=== PATIENT | female | born 1995 | race Caucasian/White ===

== ENCOUNTER 2019-07-12 10:57 | Inpatient (IN) ==
[2019-07-12] MEDS ORDERED: OXYTOCIN 30 UNITS/500 ML BAG IV PRN ×3 (11:52→22:46)
[2019-07-12 12:18] LABS: Hematocrit (blood only) 40.4 % (37-47); Hemoglobin 13.7 g/dL (12.0-16.0); Mean Corpuscular Hemoglobin 30.8 pg (25-34); Mean Corpuscular Volume 90.8 fL (80-100); Mean Platelet Volume 10.1 fL (7.4-10.4); Platelet Count 267 K/uL (130-400); RDW Coefficient of Variation 13.6 % (11.5-14.5); RDW Standard Deviation 44.4 fL (36.4-46.3); Red Blood Count 4.45 M/uL (4.2-5.4); White Blood Count 12.52 K/uL (4.8-10.8)
[2019-07-12 12:26] LABS: Mean Corpuscular Hgb Conc 33.9 g/dL (32-36)
[2019-07-12] MEDS ORDERED: BUPIVACAINE 0.25% 30 ML VIAL ONE (12:32)
[2019-07-12] MEDS ORDERED: fentaNYL citrate 100 MCG/2 ML VIAL ONE (12:32)
[2019-07-12] MEDS ORDERED: ePHEDrine sulfate 50 MG/ML AMP ONE (12:32)
[2019-07-12] MEDS ORDERED: fentaNYL 2MCG/ML ROPIV 1.25MG/ML 100 ML BAG EPI ONE (12:33)
[2019-07-12] MEDS: LACTATED RINGER'S 1,000 ML IV PRN ×2 (12:35→13:39)
[2019-07-12] MEDS ORDERED: NALOXONE HCL 0.4 MG/1 ML VIAL/CARP IV PRN (12:53)
[2019-07-12] MEDS ORDERED: NALOXONE HCL 1 MG in SODIUM CHLORIDE 0.9% 1000ML 1,000 ML IV PRN (12:53)
[2019-07-12] MEDS ORDERED: ePHEDrine sulfate 50 MG/ML AMP IV PRN (12:53)
[2019-07-12] MEDS ORDERED: DiphenhydrAMINE HCL 50 MG/ML VIAL IV PRN (12:53)
[2019-07-12] MEDS ORDERED: fentaNYL 2MCG/ML ROPIV 1.25MG/ML 100 ML BAG EPI PRN (12:53)
[2019-07-12] MEDS ORDERED: NALBUPHINE HCL INJ 10 MG/ML AMP IV PRN (12:53)
--- NOTE | 2019-07-12 12:54 | Anesthesiology Consultation ---
Date of Service July 12, 2019 Assessment & Plan (1) Encounter for pre-operative examination: Chart Review Chart Review: Patient NOT seen in Pre Admission Testing and Acceptable Risk for Labor Epidural Consults Requested none History Height/Weight Height: 5 ft 3 in Weight: 72.121 kg Allergies Allergy/AdvReac Type Severity Reaction Status Date / Time epinephrine AdvReac Mild Heart Verified 07/06/19 09:45 racing Medications Home Medications Medication Instructions Recorded Confirmed Last Taken PNV cmb#95-ferrous fumarate-FA 1 tab PO DAILY 07/12/19 07/12/19 07/11/19 17:00 [] Active Medications Generic Name Dose Route Start Last Admin Trade Name Freq PRN Reason Stop Dose Admin Lactated Ringer's 1,000 mls @ 125 mls/hr 07/12/19 11:52 07/12/19 12:35 Lr IV 07/14/19 11:51 999 mls/hr .Q8H PRN Administration L&D Protocol Protocol Past Medical History Medical History Infection of urinary tract in (Resolved) Exercise / Class Metabolic Activity II 4-5 Yardwork/Stairs/Walk up hill Past Family History Family History Father Diabetes Hypertension Past Surgical History Surgical History History of oral surgery Past Anesthesia History No Hx of Anesthesia Complications and No Family Hx of Anesthesia Complications History of PONV No Hx of PONV and No Hx of Motion Sickness Social History Smoking Status: Never smoker Do You Dip or Chew Tobacco: No Hx Alcohol Use: No Hx Substance Use: No Physical Exam Vital Signs Last Vital Signs Pulse 91 H 07/12/19 12:50 Resp 20 07/12/19 11:06 BP 136/98 07/12/19 11:14 Pulse Ox 100 07/12/19 12:50 Testing Laboratory Results 07/12/19 12:07
--- NOTE | 2019-07-12 13:49 | History & Physical Report ---
Date of Service July 12, 2019 Assessment & Plan (1) Supervision of normal first : 23yo at 40.0 weeks GA. SROM/Labor 1. Fetus: Cat 1 2. Labor; SROM. Will augment PRN 3. Vitals: WNL 4. GBS neg 5. RH neg - Rh eval post . S/p Rhogam at 28 weeks (2) Need for rhogam due to Rh negative mother: History of Present Illness Primary Care Provider: Mela Lovell, 23yo at 40.0 weeks GA. Presents with SROM and early labor. Patient reports SROM at 10am today. Denies VB. Good FM. has been uncomplicated to date. OB Labs: Blood Type A Negative 01/25/19 Antibody Screen NEGATIVE 04/19/19 Hemoglobin 11.6 g/dL (12.0-16.0) L 04/19/19 Hematocrit 33.9 % (37-47) L 04/19/19 Mean Corpuscular Volume 90.2 fL (80-100) 01/25/19 Platelet Count 295 K/uL (130-400) 01/25/19 Rubella IgG Antibody Immune (Immune) 01/25/19 Rapid Plasma Reagin Nonreactive (Nonreactive) 01/25/19 Hepatitis B Surface Antigen Neg (Neg) 01/25/19 HIV (1&2) Ab and P24 Ag, 4th Gener Neg (Neg) 01/25/19 Glucose 1 Hour 50 gm Load 117 mg/dl (70-130) 04/19/19 Maternal Serum Alpha Fetoprotein 26.2 NG/ML 01/25/19 OB Optional Labs: Alpha Fetoprotein Triple Screen SEE NOTE 01/25/19 Labs Reviewed: neg panorama neg cf and sma carrier. GBS negative Allergies Allergy/AdvReac Type Severity Reaction Status Date / Time epinephrine AdvReac Mild Heart Verified 07/06/19 09:45 racing Home Medications Home Medications Medication Instructions Recorded Confirmed Type PNV cmb#95-ferrous fumarate-FA 1 tab PO DAILY 07/12/19 07/12/19 History [] Patient History Medical History Infection of urinary tract in (Resolved) Surgical History History of oral surgery Family History Father Diabetes Hypertension Social History Preferred Language: E[place] Communication Ability: Effective Beliefs That Will Affect Care: None marital status: Current Living Situation: Spouse Other Information That Helps Us Care for You: No Feels Safe at Home: Yes Safety Concerns: Feels Safe At This Time Smoking Status: Never smoker Do You Dip or Chew Tobacco: No ; Hx Alcohol Use: No Hx Substance Use: No Review of Systems All systems reviewed & are unremarkable except as noted in HPI & below Physical Exam Constitutional: WD/WN, vitals as above Gastrointestinal (Abdomen): Percussion/Palpation: abdomen soft; abdomen nontender, no guarding and abdomen not rigid Psychiatric: A+Ox3, euthymic affect Genitourinary: Manual OB Exam: + cervical dilation (2.5), + cervical effacement 90%, + station -2 and + amniotic fluid clear OB Exam Monitor Tracing: + external FHT monitor used, + external uterine monitor used, + category I and + normal FHT variability; no early decelerations present, no late decelerations present and no variable decelerations Results & Data Vital Signs (Past 12 Hours) Vital Signs Temp Pulse Resp BP Pulse Ox 07/12/19 13:40 93 H 99 07/12/19 13:35 92 H 98 07/12/19 13:33 94 H 121/80 07/12/19 13:30 91 H 119/80 99 07/12/19 13:27 95 H 122/80 07/12/19 13:25 94 H 97 07/12/19 13:24 93 H 116/79 07/12/19 13:21 87 123/80 07/12/19 13:20 89 100 07/12/19 13:18 90 124/80 07/12/19 13:15 86 124/75 100 07/12/19 13:12 89 120/79 07/12/19 13:10 86 100 07/12/19 13:09 97 H 127/90 07/12/19 13:06 93 H 120/83 07/12/19 13:05 90 100 07/12/19 13:00 88 100 07/12/19 12:55 86 100 07/12/19 12:50 91 H 100 07/12/19 12:44 36.5 C 07/12/19 11:14 93 H 136/98 07/12/19 11:06 20 07/12/19 11:04 85 144/92 H
--- NOTE | 2019-07-12 17:11 | Labor Progress Brief Note ---
Date of Service July 12, 2019 Subjective Reason For Note: Routine Evaluation Assessment & Plan (1) Supervision of normal first : 23yo at 40.0 weeks GA. SROM/Labor 1. Fetus: Cat 1 2. Labor: Unchanged. SROM. Will start oxytocin. 3. Vitals: WNL 4. GBS neg 5. RH neg - Rh eval post . S/p Rhogam at 28 weeks (2) Need for rhogam due to Rh negative mother: Physical Exam Constitutional: WD/WN, vitals as above Gastrointestinal (Abdomen): Percussion/Palpation: abdomen soft; abdomen nontender, no guarding and abdomen not rigid Psychiatric: A+Ox3, euthymic affect Genitourinary: Manual OB Exam: + cervical dilation (2.5), + cervical effacement 90%, + station -2 and + amniotic fluid clear OB Exam Monitor Tracing: + external FHT monitor used, + external uterine monitor used, + category I and + normal FHT variability; no early decelerations present, no late decelerations present and no variable decelerations Results & Data Vital Signs (Past 12 Hours) Vital Signs Temp Pulse Resp BP Pulse Ox 07/12/19 17:06 88 119/79 07/12/19 17:05 86 100 07/12/19 17:00 92 H 100 07/12/19 16:55 94 H 100 07/12/19 16:53 92 H 117/80 07/12/19 16:51 98 H 92 07/12/19 16:50 93 H 100 07/12/19 16:45 91 H 100 07/12/19 16:40 90 100 07/12/19 16:36 90 103/61 07/12/19 16:35 88 99 07/12/19 16:30 85 99 07/12/19 16:25 85 99 07/12/19 16:22 86 107/68 07/12/19 16:20 90 99 07/12/19 16:15 89 98 07/12/19 16:10 90 98 07/12/19 16:08 88 112/64 07/12/19 16:07 87 117/79 07/12/19 16:05 90 99 07/12/19 16:03 94 H 93 07/12/19 16:00 91 H 97 07/12/19 15:57 93 H 88 L 07/12/19 15:55 103 H 97 07/12/19 15:51 93 H 114/70 07/12/19 15:50 89 97 07/12/19 15:45 92 H 98 07/12/19 15:40 89 100 07/12/19 15:38 106 H 90 07/12/19 15:37 91 H 112/69 07/12/19 15:35 98 H 100 07/12/19 15:30 98 H 97 07/12/19 15:25 94 H 99 07/12/19 15:22 87 117/75 07/12/19 15:20 94 H 99 07/12/19 15:15 93 H 98 07/12/19 15:10 93 H 95 07/12/19 15:07 83 131/86 07/12/19 15:05 87 97 07/12/19 15:00 86 18 97 07/12/19 14:55 89 98 07/12/19 14:52 85 122/72 07/12/19 14:50 91 H 97 07/12/19 14:45 86 97 07/12/19 14:40 88 96 07/12/19 14:37 83 118/74 07/12/19 14:35 87 97 07/12/19 14:30 89 97 07/12/19 14:25 85 98 07/12/19 14:21 89 114/72 07/12/19 14:20 90 98 07/12/19 14:15 83 97 07/12/19 14:10 92 H 97 07/12/19 14:06 89 117/73 07/12/19 14:05 88 98 07/12/19 14:00 95 H 99 07/12/19 13:55 87 98 07/12/19 13:52 92 H 128/85 07/12/19 13:50 87 99 07/12/19 13:45 92 H 98 07/12/19 13:40 93 H 99 07/12/19 13:35 92 H 98 07/12/19 13:33 94 H 121/80 07/12/19 13:30 91 H 119/80 99 07/12/19 13:27 95 H 122/80 07/12/19 13:25 94 H 97 07/12/19 13:24 93 H 116/79 07/12/19 13:21 87 123/80 01/16/20 13:20 89 100 07/12/19 13:18 90 124/80 07/12/19 13:15 86 124/75 100 07/12/19 13:12 89 120/79 07/12/19 13:10 86 100 07/12/19 13:09 97 H 127/90 07/12/19 13:06 93 H 120/83 07/12/19 13:05 90 100 07/12/19 13:00 88 100 07/12/19 12:55 86 07/12/19 12:50 91 H 07/12/19 12:44 36.5 C 07/12/19 11:14 93 H 136/98 07/12/19 11:06 20 07/12/19 11:04 85 144/92 H
[2019-07-12] MEDS ORDERED: IBUPROFEN 600 MG TAB PO ONE (20:44)
[2019-07-12] MEDS ORDERED: HYDROCORTISONE ACETATE 25 MG SUPP PR PRN (22:46)
[2019-07-12] MEDS ORDERED: bisacodyL 10 MG SUPP PR PRN (22:46)
[2019-07-12] MEDS ORDERED: DIPHTHERIA/TETANUS/PERTUSSIS 0.5 ML SYR/VIAL IM ONE (22:46)
[2019-07-12] MEDS ORDERED: SUPERCREAM 0.870% 15 GM JAR EXT PRN (22:46)
[2019-07-12] MEDS ORDERED: ACETAMINOPHEN 325 MG TAB PO PRN (22:46)
[2019-07-12] MEDS ORDERED: BENZOCAINE 20% AER SPR 82.5 GM CAN EXT PRN (22:46)
--- NOTE | 2019-07-12 23:37 | Delivery Summary ---
DATE OF OPERATION: 07/12/2019 PROCEDURE: Normal spontaneous vaginal delivery with first-degree perineal laceration repair and right labial laceration repair. SURGEON: Lobo Armendariz MD PREOPERATIVE DIAGNOSES: 1. Single intrauterine at 40 weeks 0 days gestational age. 2. Rh negative. 3. GBS negative. 4. Spontaneous rupture of membranes in early labor. POSTOPERATIVE DIAGNOSES: 1. Single intrauterine at 40 weeks 0 days gestational age. 2. Rh negative. 3. GBS negative. 4. Spontaneous rupture of membranes in early labor. 5. Status post delivery. ESTIMATED BLOOD LOSS: 300 mL. DRAINS: None. FLUIDS: Continuous lactated Ringer. URINE OUTPUT: Not measured. COMPLICATIONS: None. FINDINGS: Viable with Apgars of 9 and 9 and weight pending. DESCRIPTION OF PROCEDURE: The patient progressed to 10 cm dilated, 100% effaced, +2 station, pushed over intact perineum with epidural anesthesia and delivered a viable female infant with weight and Apgars as noted above. Head of the delivered in ALLY position, rest into right transverse. No nuchal cord was noted. Body and shoulders quickly followed. was noted to be vigorous soon after delivery. A 1-minute delayed cord clamping was initiated, after which the cord was double clamped and cut. was able to remain on the maternal abdomen as it was still vigorous. Cord blood was then obtained. Attention was then turned to deliver the placenta and it delivered intact, 3-vessel cord, gentle cord traction. On inspection of the perineum, vagina, and cervix, there was noted to be a first-degree perineal laceration and a right labial laceration. The perineal laceration was repaired with 3-0 Vicryl in a continuous running locked stitch. The labial, periurethral lacerations were repaired with 3-0 Vicryl in single interrupted stitch. Both mother and were stable in the immediate post-delivery period. All needle, sponge and instrument counts were correct at the completion of the case. I attest to the content of the Intraoperative Record and any orders documented therein. Any exception s are noted below.
--- NOTE | 2019-07-13 06:04 | Obstetrical Progress Note ---
Date of Service <Audra Jonathan, - Last Filed: 07/13/19 07:18> July 13, 2019 Assessment & Plan <Audra Jonathan, DO - Last Filed: 07/13/19 07:18> (1) Encounter for care and examination after delivery: 23 yo F PPD #1 following vaginal delivery without complications at 40.0weeks; doing well and without complaints this morning. - PPD #1. - Feels well, ambulating well, voiding well. - Will continue routine care. - Following d/c will have f/u in 6 weeks. - Blood type A-, Rubella immune. - Will start iron sulfate BID. Subjective <Audra HarpDO ezio - Last Filed: 07/13/19 07:18> Karen is a 23 yo female ; PPD # 1 following vaginal delivery at 40.0weeks; doing well this AM; no abdominal cramping/pain; voiding well; tolerating meals overnight, able to ambulate some within the room. Some persistent spotting this morning but improved from yesterday. Review of Systems Constitutional: denies fever, chills, sweats, headache Respiratory: denies SOB, difficulty breathing Cardiac: denies CP, chest palpitations, chest pressure Breast: denies breast pain : denies dysuria Physical Exam <Audra HarpDO ezio - Last Filed: 07/13/19 07:18> General: patient is alert and oriented, in NAD Cardiac: +S1/S2, no murmurs rubs or gallops Respiratory: lungs CTA b/l, anteriorly and posteriorly, no wheezes rales or rhonchi, no increased work of breathing, symmetric chest rise, no respiratory distress Abdomen: soft, NT, +bowel sounds Uterus: uterine fundus firm, palpable below the level of the umbilicus Lower Extremities: no LE edema or swelling, no deep calf pain, Samantha's sign negative b/l Results & Data <Audra Jonathan, DO - Last Filed: 07/13/19 07:18> Vital Signs (Past 12 Hours) Vital Signs Temp Pulse Pulse Resp BP BP Pulse Ox 07/13/19 03:20 36.8 C 86 16 111/64 96 07/12/19 23:50 36.7 C 91 H 18 129/78 98 01/16/20 22:25 36.7 C 101 H 18 133/81 07/12/19 21:47 97 H 105/57 L 07/12/19 21:32 102 H 119/78 07/12/19 21:17 114 H 117/64 07/12/19 21:02 126 H 127/73 07/12/19 20:47 96 H 116/67 07/12/19 20:32 100 H 18 127/70 07/12/19 20:17 111 H 18 114/69 07/12/19 20:02 98 H 18 110/57 L 07/12/19 19:47 103 H 18 120/64 07/12/19 19:35 104 H 97 07/12/19 19:32 37.0 C 102 H 18 117/57 L 81 L 07/12/19 19:30 96 H 100 07/12/19 19:25 98 H 98 07/12/19 19:24 108 H 93 07/12/19 19:21 100 H 119/58 L 07/12/19 19:20 99 H 100 07/12/19 19:15 95 H 99 07/12/19 19:13 106 H 93 07/12/19 19:10 110 H 100 07/12/19 19:07 94 H 126/95 89 L 07/12/19 19:05 105 H 100 07/12/19 19:00 99 H 100 07/12/19 18:55 90 100 07/12/19 18:52 46 L 72/49 L 07/12/19 18:50 91 H 100 07/12/19 18:45 87 100 07/12/19 18:40 113 H 100 07/12/19 18:37 110 H 140/86 07/12/19 18:35 98 H 100 07/12/19 18:30 92 H 99 07/12/19 18:29 37.0 C 18 07/12/19 18:25 93 H 100 07/12/19 18:22 115 H 135/87 07/12/19 18:20 94 H 99 07/12/19 18:15 103 H 100 07/12/19 18:10 87 99 07/12/19 18:06 100 H 109/74 07/12/19 18:05 90 100 Laboratory Results Laboratory Results - last 24 hr 07/12/19 07/13/19 07/13/19 12:07 06:10 06:10 WBC 12.52 H RBC 4.45 Hgb 13.7 11.0 L Hct 40.4 32.8 L MCV 90.8 MCH 30.8 MCHC 33.9 RDW Std Deviation 44.4 RDW Coeff of Sabino 13.6 Plt Count 267 MPV 10.1 Blood Type Pending Antibody Screen Pending Screen Pending Medications Administered Current Medications Acetaminophen (Tylenol) 650 mg PO Q6H PRN PRN Reason: Pain/NAQVI/Fever Stop: 08/11/19 22:45 Benzocaine (Dermoplast Pain Relieving [place]) 1 appln EXT PRN PRN PRN Reason: Perineal Discomfort Stop: 08/11/19 22:45 Bisacodyl (Dulcolax) 5 mg PO 1999 REBEKAH Stop: 07/13/19 20:01 Bisacodyl (Dulcolax) 10 mg [place] DAILY PRN PRN Reason: No BM on 2nd post- day Stop: 08/11/19 22:45 Cocaine HCl (Supercream 0.870%) 1 gm EXT BID PRN PRN Reason: Hemorrhoidal Inflammation Stop: 07/26/19 22:45 Diphenhydramine HCl (Benadryl) 25 mg IV Q6H PRN PRN Reason: Itching Stop: 07/13/19 12:52 Docusate Sodium (Colace) 100 mg PO DAILY@08,21 [facility] Stop: 08/12/19 07:59 Ephedrine Sulfate (Ephedrine Sulfate) 10 mg IV Q5M PRN PRN Reason: Hypotension Stop: 07/13/19 12:52 Hydrocortisone (Anusol Hc) 25 mg [place] BID PRN PRN Reason: Hemorrhoidal Inflammation Stop: 08/11/19 22:45 Lactated Ringer's (Lr) 1,000 mls @ 125 mls/hr IV .Q8H PRN; Protocol PRN Reason: L&D Protocol Stop: 07/14/19 11:51 Last Infusion: 07/12/19 19:14 Dose: 0 mls/hr Documented by: Oxytocin (Pitocin) 30 units in 500 mls @ 333.333 mls/hr IV .Q1H30M PRN; Protocol PRN Reason: Bleeding Control Stop: 08/11/19 11:51 Naloxone HCl 1 mg/ Sodium (Chloride) 1,002.5 mls @ 50 mls/hr IV .Q20H3M PRN PRN Reason: itching or nausea Stop: 07/13/19 12:52 Oxytocin (Pitocin) 30 units in 500 mls @ 333.333 mls/hr IV .Q1H30M PRN; Protocol PRN Reason: Bleeding Control Stop: 08/11/19 22:45 Ibuprofen (Motrin) 600 mg PO Q4H PRN PRN Reason: Pain/NAQVI/Cramping/Fever Stop: 08/11/19 22:45 Nalbuphine HCl (Nubain) 5 mg IV Q10M PRN PRN Reason: itching or nausea Stop: 07/13/19 12:52 Naloxone HCl (Narcan) 0.1 mg IV UD PRN PRN Reason: Respiratory Depression Stop: 07/13/19 12:52 Prenat Multivit/Spout Positioner/Iron/Folic Ac ( Vitamin) 1 tab PO DAILY@08 REBEKAH Stop: 08/12/19 07:59 Ropivacaine (Epidural (L&D)) 100 ml EPI PRN PRN; Protocol PRN Reason: Pain R/T Labor Stop: 07/13/19 12:52 <Lobo Armendariz MD - Last Filed: 07/13/19 07:44> Co-Signing Physician Notes Patient seen and evaluated and agree with the above findings and plan. Continue routine care Resident Activity Tracking <Audra Castillo DO - Last Filed: 07/13/19 07:18> Resident Involvement: Resident Care Provided Care Provided: OB Delivery
[2019-07-13 06:27] LABS: Hematocrit (blood only) 32.8 % (37-47)
[2019-07-13] MEDS ORDERED: FERROUS SULFATE 325 MG TAB PO SCH (08:00)
[2019-07-13] MEDS: IBUPROFEN 600 MG TAB PO PRN ×4 (08:32→23:39)
[2019-07-13] MEDS: PRENATAL VITAMIN 1 TAB PO SCH (09:12)
[2019-07-13] MEDS: DOCUSATE SODIUM 100 MG CAP PO SCH ×2 (09:12→19:40)
[2019-07-13] MEDS ORDERED: bisacodyL 5 MG TABEC PO SCH (20:00)
--- NOTE | 2019-07-14 06:12 | Obstetrical Progress Note ---
Date of Service <Audra Castillo - Last Filed: 07/14/19 07:07> July 14, 2019 Assessment & Plan <Audra Jonathan, DO - Last Filed: 07/14/19 07:07> (1) Encounter for care and examination after delivery: 23 yo F PPD #2 following vaginal delivery without complications at 40.0weeks; doing well and without complaints this morning. - PPD #2. - Feels well, ambulating well, voiding well. - For discharge today. - Following d/c will have f/u in 6 weeks. - Went over discharge instructions and answered all patient questions. Subjective <Audra Castillo DO - Last Filed: 07/14/19 07:07> Karen is a 23 yo female ; PPD # 2 following vaginal delivery at 40.0weeks; doing well this AM; no abdominal cramping/pain; voiding well; tolerating meals overnight, able to ambulate some within the room. Some persistent spotting this morning but improved from yesterday. Review of Systems Constitutional: denies fever, chills, sweats, headache Respiratory: denies SOB, difficulty breathing Cardiac: denies CP, chest palpitations, chest pressure Breast: denies breast pain : denies dysuria Physical Exam <Audra Castillo DO - Last Filed: 07/14/19 07:07> General: patient is alert and oriented, in NAD Cardiac: +S1/S2, no murmurs rubs or gallops Respiratory: lungs CTA b/l, anteriorly and posteriorly, no wheezes rales or rhonchi, no increased work of breathing, symmetric chest rise, no respiratory distress Abdomen: soft, NT, +bowel sounds Uterus: uterine fundus firm, palpable below the level of the umbilicus Lower Extremities: no LE edema or swelling, no deep calf pain, Samantha's sign negative b/l Results & Data <Audra Castillo DO - Last Filed: 07/14/19 07:07> Vital Signs (Past 12 Hours) Vital Signs Temp Pulse Resp BP Pulse Ox 07/13/19 23:30 36.9 C 92 H 16 130/86 96 07/13/19 19:45 36.5 C 93 H 17 123/85 98 Laboratory Results Laboratory Results - last 24 hr 07/13/19 07/13/19 06:10 06:10 Hgb 11.0 L Hct 32.8 L Blood Type A Negative Antibody Screen NEGATIVE Screen Negative Medications Administered Current Medications Acetaminophen (Tylenol) 650 mg PO Q6H PRN PRN Reason: Pain/NAQVI/Fever Stop: 08/11/19 22:45 Benzocaine (Dermoplast Pain Relieving [place]) 1 appln EXT PRN PRN PRN Reason: Perineal Discomfort Stop: 08/11/19 22:45 Last Admin: 07/13/19 00:15 Dose: 1 appln Documented by: Bisacodyl (Dulcolax) 10 mg [place] DAILY PRN PRN Reason: No BM on 2nd post- day Stop: 08/11/19 22:45 Cocaine HCl (Supercream 0.870%) 1 gm EXT BID PRN PRN Reason: Hemorrhoidal Inflammation Stop: 07/26/19 22:45 Docusate Sodium (Colace) 100 mg PO DAILY@08,21 [facility] Stop: 08/12/19 07:59 Last Admin: 07/13/19 19:40 Dose: 100 mg Documented by: Ferrous Sulfate (Feosol) 325 mg PO BIDM [facility] Stop: 08/12/19 07:59 Hydrocortisone (Anusol Hc) 25 mg [place] BID PRN PRN Reason: Hemorrhoidal Inflammation Stop: 08/11/19 22:45 Lactated Ringer's (Lr) 1,000 mls @ 125 mls/hr IV .Q8H PRN; Protocol PRN Reason: L&D Protocol Stop: 07/14/19 11:51 Last Infusion: 07/12/19 19:14 Dose: 0 mls/hr Documented by: Oxytocin (Pitocin) 30 units in 500 mls @ 333.333 mls/hr IV .Q1H30M PRN; Protocol PRN Reason: Bleeding Control Stop: 08/11/19 11:51 Oxytocin (Pitocin) 30 units in 500 mls @ 333.333 mls/hr IV .Q1H30M PRN; Protocol PRN Reason: Bleeding Control Stop: 08/11/19 22:45 Ibuprofen (Motrin) 600 mg PO Q4H PRN PRN Reason: Pain/NAQVI/Cramping/Fever Stop: 08/11/19 22:45 Last Admin: 07/13/19 23:39 Dose: 600 mg Documented by: Prenat Multivit/[place]/Iron/Folic Ac ( Vitamin) 1 tab PO DAILY@08 REBEKAH Stop: 08/12/19 07:59 Last Admin: 07/13/19 09:12 Dose: 1 tab Documented by: <Chace Jimenez MD, FACOG - Last Filed: 07/14/19 07:12> Co-Signing Physician Notes Resident Physician Supervision Note: I was present with Dr. Zhu during the history and exam. I discussed the case with the resident and agree with the findings and plan as documented in the note. Any exceptions or clarifications are listed here: [None] Documented By: Chace Jimenez MD, FACOG Resident Activity Tracking <Audra Castillo DO - Last Filed: 07/14/19 07:07> Resident Involvement: Resident Care Provided Care Provided: OB Delivery
[2019-07-14] MEDS: IBUPROFEN 600 MG TAB PO PRN (07:35)
[2019-07-14] MEDS: PRENATAL VITAMIN 1 TAB PO SCH (07:35)
[2019-07-14] MEDS: DOCUSATE SODIUM 100 MG CAP PO SCH (07:35)
== END 2019-07-14 12:08 | disposition home or self-care (01) | DRG 807 ==
LOC: OPB 10:57 → 4S1 10:59 → 4S2 22:24

== ENCOUNTER 2021-03-06 07:26 | Inpatient (IN) ==
--- NOTE | 2021-02-24 22:39 | Anesthesiology Consultation ---
Date of Service February 24, 2021 Assessment & Plan (1) Encounter for pre-operative examination: Chart Review Chart Review: Acceptable Risk for Surgery and Patient NOT seen in Pre Admission Testing Consults Requested none History Surgery Operation Date: 03/06/21 08:50 Proposed Procedures p Section in LD (Delivery of Baby Through Abdominal Incision) - Di Coronel MD Height/Weight Height: 5 ft 4 in Weight: 73.482 kg Allergies Allergy/AdvReac Type Severity Reaction Status Date / Time epinephrine AdvReac Mild Heart Verified 02/24/21 11:13 racing Medications Home Medications Medication Instructions Recorded Confirmed Last Taken acetaminophen [Tylenol] PO PRN 07/30/20 02/19/21 Unknown vit no.95-ferrous 1 tab PO QPM 02/24/21 02/24/21 Unknown fumarate 28 mg-folic acid 800 mcg tablet () Past Medical History Medical History Exposure to measles virus GERD (gastroesophageal reflux disease) UNDER CONTROL Infection of urinary tract in Past Family History Family History Father Diabetes Hypertension Past Surgical History Surgical History History of oral surgery WISDOM TEETH Social History Smoking Status: Never smoker Do You Dip or Chew Tobacco: No Hx Alcohol Use: Yes Alcohol type: beer and hard liquor alcohol intake frequency: a few times a week Alcohol Intake Frequency Comment: WHEN NOT ONLY Hx Substance Use: No
--- NOTE | 2021-03-05 19:49 | History & Physical Report ---
Date of Service March 05, 2021 Assessment & Plan (1) Breech presentation: Plan: 25 y/o at 39 4/7 wga presents for preop for planned CS tomorrow for breech VSS FHT appropriate Breech today, will check US prior to OR tomorrow Discussed indications, risks, benefits, alternatives with risks including infection, bleeding, injury to adjacent structures (bowel, bladder, ureters, blood vessels, nerves, baby), possible need for blood transfusion and/or life saving hysterectomy, VTE. Consent reviewed in detail w/ pt and signed after all questions answered to her satisfaction. History of Present Illness Chief Complaint: Planned CS Primary Care Provider: Mela Lovell, 25 y/o at 39 4/7 wga w/ MEME 03/08 by LMP c/w [address] [place] [address] who presents for pre-op for planned primary CS for breech tomorrow. +FM; denies regular ctx, LOF, VB. Previously offered ECV and declined, opted for primary CS PNI: Breech Rh neg Past [employer] Hx: G1 2019 at 40 wks G2 current Menarche 10 Last pap 11/2018 neg cytology Denies hx STIs Allergies Allergy/AdvReac Type Severity Reaction Status Date / Time epinephrine AdvReac Mild Heart Verified 03/05/21 10:24 racing Home Medications Medication Instructions Recorded Confirmed Type acetaminophen [Tylenol] PO PRN 07/30/20 03/05/21 History vit no.95-ferrous 1 tab PO QPM 02/24/21 03/05/21 History fumarate 28 mg-folic acid 800 mcg tablet () breast pump #1 ea 03/03/21 03/05/21 Rx Patient History Medical History Exposure to measles virus GERD (gastroesophageal reflux disease) UNDER CONTROL Infection of urinary tract in Surgical History History of oral surgery WISDOM TEETH Family History Father Diabetes Hypertension Social History Smoking Status: Never smoker Second Hand Exposure: Yes (GRANDPARENTS SMOKED); Hx Alcohol Use: Yes Alcohol type: beer and hard liquor Hx Substance Use: No Preferred Language: Australian Communication Ability: Effective Paralegal Instructor Required: No Beliefs That Will Affect Care: None marital status: marital status details: Nery (32) [phone] Current Living Situation: Spouse and Family Current Living Situation Comment: lives with spouse, daughter, 1 dog, 1 cat, spouse to change litter. current occupational status: unemployed Feels Safe at Home: Yes Assistive Devices: Contacts and Glasses Physical Exam Constitutional: WD/WN, vitals as above Respiratory: normal respiratory effort; no respiratory distress and no labored breathing Genitourinary: OB Exam Abdomen: + fundal height (39) and + breech FHT 130s Results & Data ([facility]) Laboratory Results OB Labs: Blood Type A Negative 07/30/20 Antibody Screen NEGATIVE 12/19/20 Hemoglobin 12.1 g/dL (12.0-16.0) 12/19/20 Hematocrit 37.2 % (37-47) 12/19/20 Mean Corpuscular Volume 91.1 fL (80-100) 07/30/20 Platelet Count 330 K/uL (130-400) 07/30/20 Rubella IgG Antibody Immune (Immune) 07/30/20 Rapid Plasma Reagin Nonreactive (Nonreactive) 07/30/20 Hepatitis B Surface Antigen Neg (Neg) 07/30/20 HIV (1&2) Ab and P24 Ag, 4th Gener Neg (Neg) 07/30/20 Glucose 1 Hour 50 gm Load 104 mg/dl (70-130) 12/19/20 Maternal Serum Alpha Fetoprotein 26.2 NG/ML 01/25/19 OB Optional Labs: Chlamydia trachomatis RNA NOT DETECTED (NOT DETECTED) 07/30/20 Neisseria gonorrhoeae RNA NOT DETECTED (NOT DETECTED) 07/30/20 Alpha Fetoprotein Triple Screen SEE NOTE 01/25/19 Labs Reviewed: CF/SMA negative in prior (12/08/18) low risk cfdna GBS neg Diagnostic Findings Ant plac Coding Level of Care Code None Diagnoses Breech presentation O32.1XX0
[~2021-03-06 07:26] MED LIST: LACTATED RINGER'S 1,000 ML IV SCH; MoRPHine SULFATE PF 1 MG/ML 10 ML AMP/VIAL ONE; ONDANSETRON INJ 2 MG/ML 2 ML VIAL ONE; OXYTOCIN 10 UNITS/ML VIAL ONE; SODIUM CHLORIDE 0.9% INJ 10 ML VIAL ONE; ceFAZolin 2,000 MG in SYRINGE 0 ML IV SCH; fentaNYL citrate 100 MCG/2 ML VIAL ONE
--- NOTE | 2021-03-06 08:01 | Anesthesiology Consultation ---
Date of Service March 06, 2021 Assessment & Plan (1) Encounter for pre-operative examination: Chart Review Chart Review: Patient NOT seen in Pre Admission Testing and Acceptable Risk for Labor Epidural Consults Requested none ASA ASA2 Proposed Anesthesia Anesthesia Type: Labor Epidural Risk / Benefits Reviewed With: PT / POA / Parent / Guardian, Accepts Plan and Informed Consent Obtained History Surgery Operation Date: 03/06/21 07:30 Proposed Procedures p Section (Delivery of Baby Through Abdominal Incision) - Di Coronel MD Height/Weight Height: 5 ft 4 in Weight: 73.482 kg Allergies Allergy/AdvReac Type Severity Reaction Status Date / Time epinephrine AdvReac Mild Heart Verified 03/05/21 10:24 racing Medications Home Medications Medication Instructions Recorded Confirmed Last Taken acetaminophen [Tylenol] PO PRN 07/30/20 03/05/21 Unknown vit no.95-ferrous 1 tab PO QPM 02/24/21 03/05/21 Unknown fumarate 28 mg-folic acid 800 mcg tablet () breast pump #1 ea 03/03/21 03/05/21 Unknown Active Medications Generic Name Dose Route Start Last Admin Trade Name Freq PRN Reason Stop Dose Admin Cefazolin Sodium 2,000 mg/ 15 mls @ 3.75 mls/min 03/06/21 06:00 03/06/21 10:16 Syringe IV 03/06/21 14:00 Not Given PREOP REBEKAH Oxytocin 30 units in 500 mls @ 7 mls/hr 03/06/21 08:08 03/06/21 10:28 Pitocin IV 03/08/21 08:07 0.42 units/hr .Q24H PRN 7 mls/hr Labor Induction/Augmentation Titration Protocol 0.42 UNITS/HR NPO Date Last Intake of Fluids: 03/05/21 Time Last Intake of Fluids: 23:30 Date Last Intake of Solids: 03/05/21 Time Last Intake of Solids: 23:00 Past Medical History Medical History Exposure to measles virus GERD (gastroesophageal reflux disease) UNDER CONTROL Infection of urinary tract in Exercise / Class Metabolic Activity II 4-5 Yardwork/Stairs/Walk up hill Negative for chest pain or shortness of breath. Past Family History Family History Father Diabetes Hypertension Past Surgical History Surgical History History of oral surgery WISDOM TEETH Past Anesthesia History No Hx of Anesthesia Complications and No Family Hx of Anesthesia Complications History of PONV No Hx of PONV and Hx of Motion Sickness Social History Smoking Status: Never smoker Do You Dip or Chew Tobacco: No Hx Alcohol Use: Yes Alcohol type: beer and hard liquor alcohol intake frequency: a few times a week Alcohol Intake Frequency Comment: WHEN NOT ONLY Hx Substance Use: No Review of Systems Patient denies active symptoms of GERD. Physical Exam Vital Signs Last Vital Signs Pulse 91 H 03/06/21 10:29 BP 114/69 03/06/21 10:29 Constitutional no acute distress and not obese ENMT Mouth: + chipped teeth Thyromental Distance: > or= 3.5 Finger Breadths Mallampati Class: II Mouth / Teeth: 1. chip 2. chip Neck normal visual inspection; neck extension not limited Respiratory normal respiratory effort Auscultation: lungs clear to auscultation bilaterally Cardiovascular Rate/Rhythm: regular rate and regular rhythm Heart Sounds: no murmur Neurologic moves all extremities Motor/Sensory: no sensory deficit Testing Laboratory Results 03/06/21 08:17 Blood Type A Negative 03/06/21 07:35 Antibody Screen NEGATIVE 03/06/21 07:35
[2021-03-06] MEDS ORDERED: OXYTOCIN 30 UNITS/500 ML BAG IV PRN ×3 (08:08→23:46)
[2021-03-06 08:33] LABS: Hematocrit (blood only) 33.9 % (37-47); Hemoglobin 11.1 g/dL (12.0-16.0); Mean Corpuscular Hemoglobin 29.8 pg (25-34); Mean Corpuscular Hgb Conc 32.7 g/dL (32-36); Mean Corpuscular Volume 90.9 fL (80-100); Mean Platelet Volume 9.6 fL (7.4-10.4); Platelet Count 268 K/uL (130-400); RDW Coefficient of Variation 13.4 % (11.5-14.5); RDW Standard Deviation 43.4 fL (36.4-46.3); Red Blood Count 3.73 M/uL (4.2-5.4); White Blood Count 9.14 K/uL (4.8-10.8)
--- NOTE | 2021-03-06 08:34 | Labor Progress Brief Note ---
Date of Service March 06, 2021 Subjective Pt presented for planned CS today due to breech presentation. +FM; denies regular ctx, LOF, VB Assessment & Plan (1) Unstable lie of fetus: (2) : Plan: 25 y/o at 39 5/7 wga presented for planned CS for breech but found to be cephalic on BSUS on admission VSS Fetus cat 1 Unstable lie - now cephalic on admission. Reviewed options of discharge with expectant management and schedule late term IOL in case with possibility of baby reverting back to breech, elective IOL pending on-call provider and L&D ok, elective primary CS. After discussion of risks vs benefits of each, pt would like to undergo induction if ok with provider and L&D charge with bed availability. Provider and charge are amenable to plan, so will start pitocin. Pt aware if baby were to flip again would be for CS. GBS neg Epidural PRN COVID already neg Admission and Anticipated Discharge Date Admission Date: March 06, 2021 Physical Exam Constitutional: WD/WN, vitals as above Respiratory: normal respiratory effort; no respiratory distress and no labored breathing Genitourinary: OB Exam Abdomen: + vertex (by leopolds and BSUS) and + estimated weight (7-8) Manual OB Exam: + cervical dilation 2 cm, + cervical effacement 50% and + station -2 OB Exam Monitor Tracing: + external FHT monitor used, + external uterine monitor used (irreg) and + category I (125/mod/+accel/-decel) Results & Data ([facility]) Vital Signs (Past 12 Hours) Vital Signs Pulse BP 03/06/21 07:43 92 H 118/83 Coding Level of Care Code None Diagnoses Unstable lie of fetus O32.0XX0 Z34.90
[2021-03-06] MEDS: CITRIC ACID/SODIUM CITRATE 15 ML UDC PO SCH ×2 (10:16→10:17)
--- NOTE | 2021-03-06 11:06 | Labor Progress Brief Note ---
Date of Service March 06, 2021 Subjective Beginning to feel pain Assessment & Plan (1) Unstable lie of fetus: (2) : Plan: 25 y/o at 39 5/7 wga, eIOL VSS Fetus cat 1 Labor - continue pit augmentation, arom when able GBS neg Epidural PRN Admission and Anticipated Discharge Date Admission Date: March 06, 2021 Physical Exam Genitourinary: Manual OB Exam: + cervical dilation (2-3), + cervical effacement 50% and + station -2 Results & Data ([facility]) Vital Signs (Past 12 Hours) Vital Signs Pulse BP 03/06/21 10:29 91 H 114/69 03/06/21 07:43 92 H 118/83 Coding Level of Care Code None Diagnoses Unstable lie of fetus O32.0XX0 Z34.90
[2021-03-06] MEDS ORDERED: ePHEDrine sulfate 50 MG/ML AMP ONE (11:52)
[2021-03-06] MEDS ORDERED: SODIUM CHLORIDE 0.9% INJ 10 ML VIAL ONE (11:52)
[2021-03-06] MEDS ORDERED: BUPIVACAINE 0.25% 30 ML VIAL ONE (11:52)
[2021-03-06] MEDS ORDERED: fentaNYL citrate 100 MCG/2 ML VIAL ONE (11:53)
[2021-03-06] MEDS ORDERED: fentaNYL 2MCG/ML ROPIVACAINE 1.25MG/ML 100 ML BAG EPI ONE (11:53)
[2021-03-06] MEDS ORDERED: NALOXONE HCL 0.4 MG/1 ML VIAL/CARP IV PRN (12:00)
[2021-03-06] MEDS ORDERED: ONDANSETRON INJ 2 MG/ML 2 ML VIAL IV PRN (12:00)
[2021-03-06] MEDS ORDERED: ePHEDrine sulfate 50 MG/ML AMP IV PRN (12:00)
[2021-03-06] MEDS ORDERED: NALOXONE HCL 1 MG in SODIUM CHLORIDE 0.9% 1000ML 1,000 ML IV PRN (12:00)
[2021-03-06] MEDS ORDERED: diphenhydrAMINE 50 MG/ML VIAL IV PRN (12:00)
[2021-03-06] MEDS ORDERED: NALBUPHINE HCL INJ 10 MG/ML AMP IV PRN (12:00)
[2021-03-06] MEDS: fentaNYL 2MCG/ML ROPIVACAINE 1.25MG/ML 100 ML BAG EPI PRN ×2 (12:35→21:18)
--- NOTE | 2021-03-06 15:08 | Labor Progress Brief Note ---
Date of Service March 06, 2021 Subjective Doing well, comfortable with epidural. FHT Cat 1 Moquino Q 2 SVE 4/70/-1 AROM clear fluid Assessment & Plan Admission and Anticipated Discharge Date Admission Date: March 06, 2021 Results & Data ([facility]) Vital Signs (Past 12 Hours) Vital Signs Temp Pulse Resp BP Pulse Ox 03/06/21 15:00 102 H 98 03/06/21 14:57 87 110/64 03/06/21 14:55 94 H 97 03/06/21 14:50 99 H 97 03/06/21 14:45 94 H 96 03/06/21 14:42 97 H 117/74 03/06/21 14:40 90 97 03/06/21 14:35 96 H 98 03/06/21 14:30 98 H 99 03/06/21 14:27 99 H 122/77 03/06/21 14:25 91 H 97 03/06/21 14:20 99 H 98 03/06/21 14:15 91 H 97 03/06/21 14:12 94 H 112/85 03/06/21 14:10 93 H 98 03/06/21 14:05 91 H 96 03/06/21 14:00 92 H 18 97 03/06/21 13:56 90 119/77 03/06/21 13:55 86 97 03/06/21 13:50 91 H 97 03/06/21 13:45 89 98 03/06/21 13:42 96 H 120/79 03/06/21 13:40 89 97 03/06/21 13:35 88 97 03/06/21 13:30 91 H 97 03/06/21 13:27 95 H 124/66 03/06/21 13:25 90 98 03/06/21 13:20 86 98 03/06/21 13:15 86 98 03/06/21 13:13 87 121/83 03/06/21 13:10 89 98 03/06/21 13:05 88 98 03/06/21 13:00 87 98 03/06/21 12:56 93 H 127/90 03/06/21 12:55 91 H 98 03/06/21 12:53 96 H 131/82 03/06/21 12:50 90 146/78 H 97 03/06/21 12:47 89 132/81 03/06/21 12:45 93 H 18 96 03/06/21 12:44 90 132/81 03/06/21 12:41 94 H 117/78 03/06/21 12:40 96 H 98 03/06/21 12:38 99 H 122/81 03/06/21 12:35 101 H 124/77 98 03/06/21 12:33 92 H 92 03/06/21 12:32 99 H 117/81 03/06/21 12:30 94 H 96 03/06/21 12:29 87 120/80 03/06/21 12:26 88 131/84 03/06/21 12:25 91 H 96 03/06/21 12:20 89 98 03/06/21 12:09 99 H 92 03/06/21 12:06 88 97 03/06/21 12:01 87 98 03/06/21 12:00 37.0 C 18 03/06/21 11:57 87 119/74 03/06/21 11:56 90 98 03/06/21 10:29 91 H 114/69 03/06/21 07:43 92 H 118/83 Coding Level of Care Code None
[2021-03-06] MEDS ORDERED: ACETAMINOPHEN 500 MG TAB PO PRN (16:12)
[2021-03-06] MEDS: LACTATED RINGER'S 1,000 ML IV PRN ×2 (16:54→21:18)
--- NOTE | 2021-03-06 19:00 | Labor Progress Brief Note ---
Date of Service March 06, 2021 Subjective Feeling ctx. FHT Cat 1 Despard Q 2 SVE //+1 Continue labor. Assessment & Plan Admission and Anticipated Discharge Date Admission Date: March 06, 2021 Results & Data ([facility]) Vital Signs (Past 12 Hours) Vital Signs Temp Pulse Resp BP Pulse Ox 03/06/21 18:55 97 H 98 03/06/21 18:50 92 H 98 03/06/21 18:45 101 H 99 03/06/21 18:41 94 H 115/71 03/06/21 18:40 92 H 97 03/06/21 18:35 95 H 98 03/06/21 18:30 95 H 98 03/06/21 18:27 95 H 112/76 03/06/21 18:25 98 H 98 03/06/21 18:20 92 H 98 03/06/21 18:15 96 H 98 03/06/21 18:11 95 H 123/73 03/06/21 18:10 96 H 97 03/06/21 18:05 101 H 97 03/06/21 18:00 36.9 C 97 H 18 98 03/06/21 17:57 100 H 119/70 03/06/21 17:55 103 H 95 03/06/21 17:50 104 H 97 03/06/21 17:45 110 H 99 03/06/21 17:41 96 H 120/71 03/06/21 17:40 101 H 96 03/06/21 17:35 122 H 98 03/06/21 17:30 98 H 18 96 03/06/21 17:27 98 H 120/72 03/06/21 17:25 95 H 97 03/06/21 17:20 95 H 96 03/06/21 17:15 103 H 96 03/06/21 17:13 93 H 114/66 03/06/21 17:10 99 H 97 03/06/21 17:06 114 H 93 03/06/21 17:05 108 H 96 03/06/21 17:00 95 H 18 97 03/06/21 16:58 93 H 124/65 03/06/21 16:56 108 H 90 03/06/21 16:55 93 H 98 03/06/21 16:50 96 H 97 03/06/21 16:45 93 H 97 03/06/21 16:41 96 H 109/67 03/06/21 16:40 94 H 97 03/06/21 16:35 93 H 98 03/06/21 16:30 91 H 97 03/06/21 16:27 98 H 108/64 03/06/21 16:25 96 H 97 03/06/21 16:20 110 H 97 03/06/21 16:15 101 H 97 03/06/21 16:12 97 H 112/64 03/06/21 16:10 98 H 96 03/06/21 16:05 97 H 97 03/06/21 16:00 96 H 18 97 03/06/21 15:57 96 H 90/55 L 03/06/21 15:55 89 96 03/06/21 15:50 106 H 97 03/06/21 15:45 103 H 98 03/06/21 15:41 97 H 102/58 L 03/06/21 15:40 92 H 95 03/06/21 15:35 96 H 96 03/06/21 15:30 101 H 18 97 03/06/21 15:28 97 H 113/60 03/06/21 15:25 107 H 97 03/06/21 15:20 100 H 98 03/06/21 15:15 36.8 C 102 H 18 98 03/06/21 15:13 100 H 111/67 03/06/21 15:10 107 H 99 03/06/21 15:05 89 98 03/06/21 15:00 102 H 18 98 03/06/21 14:57 87 110/64 03/06/21 14:55 94 H 97 03/06/21 14:50 99 H 97 03/06/21 14:45 94 H 96 03/06/21 14:42 97 H 117/74 03/06/21 14:40 90 97 03/06/21 14:35 96 H 98 03/06/21 14:30 98 H 99 03/06/21 14:27 99 H 122/77 03/06/21 14:25 91 H 97 03/06/21 14:20 99 H 98 03/06/21 14:15 91 H 97 03/06/21 14:12 94 H 112/85 03/06/21 14:10 93 H 98 03/06/21 14:05 91 H 96 03/06/21 14:00 92 H 18 97 03/06/21 13:56 90 119/77 03/06/21 13:55 86 97 03/06/21 13:50 91 H 97 03/06/21 13:45 89 98 03/06/21 13:42 96 H 120/79 03/06/21 13:40 89 97 03/06/21 13:35 88 97 03/06/21 13:30 91 H 97 03/06/21 13:27 95 H 124/66 03/06/21 13:25 90 98 03/06/21 13:20 86 98 03/06/21 13:15 86 98 03/06/21 13:13 87 121/83 03/06/21 13:10 89 98 03/06/21 13:05 88 98 03/06/21 13:00 87 98 03/06/21 12:56 93 H 127/90 03/06/21 12:55 91 H 98 03/06/21 12:53 96 H 131/82 03/06/21 12:50 90 146/78 H 97 03/06/21 12:47 89 132/81 03/06/21 12:45 93 H 18 96 03/06/21 12:44 90 132/81 03/06/21 12:41 94 H 117/78 03/06/21 12:40 96 H 98 03/06/21 12:38 99 H 122/81 03/06/21 12:35 101 H 124/77 98 03/06/21 12:33 92 H 92 03/06/21 12:32 99 H 117/81 03/06/21 12:30 94 H 96 03/06/21 12:29 87 120/80 03/06/21 12:26 88 131/84 03/06/21 12:25 91 H 96 03/06/21 12:20 89 98 03/06/21 12:09 99 H 92 03/06/21 12:06 88 97 03/06/21 12:01 87 98 03/06/21 12:00 37.0 C 18 03/06/21 11:57 87 119/74 03/06/21 11:56 90 98 03/06/21 10:29 91 H 114/69 03/06/21 07:43 92 H 118/83 Coding Level of Care Code None
[2021-03-06] MEDS ORDERED: SILVER NITR/POTASSIUM NITRATE APPLICATOR ONE (22:53)
--- NOTE | 2021-03-06 23:42 | Delivery Summary ---
Vaginal Delivery Summary Date of Service March 06, 2021 Vaginal Delivery Summary Vaginal Delivery Summary: Pre-delivery diagnoses: 25yo @ 39 5/7, IOL due to unstable lie, Rh neg Post-delivery diagnoses: same Procedure: spontaneous vaginal delivery, repair of 2nd degree perineal laceration Surgeon: Halle Bedolla DO Complications: none Findings: Viable female . Apgars: 8/9 . Weight pending, please see nursery records Estimated blood loss: 300ml Description of delivery: The patient had been scheduled for due to breech presentation, however upon presentation to L&D for surgery, baby was cephalic. She was induced with gibbs bulb, pitocin. She progressed to complete with epidural anesthesia. She then began to push. She spontaneously vaginally delivered a viable from the cephalic presentation. The head delivered in MARK position. The anterior shoulder delivered, followed by the posterior shoulder, followed by the body. The baby was placed on mother's abdomen and a spontaneous cry was heard. Delayed cord clamping was employed, and the cord was doubly clamped and cut. Cord blood was obtained. The placenta was delivered spontaneously intact with a 3-vessel cord. The uterus and vagina were swept of clots and debris. IV pitocin was given. The uterus became firm. The cervix, vagina, and perineum were inspected and a 2nd degree perineal laceration was noted, repaired with 3-0 vicryl. There were still some areas of oozing blood, these were made hemostatic with silver nitrate sticks and additional [id number] sutures. Excellent hemostasis was observed. Vaginal packing inserted to add additional pressure to these areas to maintain hemostasis. The mother and baby are recovering in stable and good condition in the room. Sponge, needle and instrument counts were correct x 2. DO BERTHA Lopez
[2021-03-06] MEDS ORDERED: DIPHTHERIA/TETANUS/PERTUSSIS 0.5 ML SYR/VIAL IM ONE (23:46)
[2021-03-06] MEDS ORDERED: HYDROCORTISONE ACETATE 25 MG SUPP PR PRN (23:46)
[2021-03-06] MEDS ORDERED: bisacodyL 10 MG SUPP PR PRN (23:46)
[2021-03-06] MEDS ORDERED: BENZOCAINE 20% AER SPR 82.5 GM CAN EXT PRN (23:46)
[2021-03-06] MEDS ORDERED: oxyCODONE/ACETAMINOPHEN 5mg/325mg TAB PO PRN (23:46)
[2021-03-06] MEDS ORDERED: SUPERCREAM 0.870% 15 GM JAR EXT PRN (23:46)
--- NOTE | 2021-03-07 01:12 | Anesthesia Procedure Note ---
Date of Service March 07, 2021 Anesthesia Post Epidural Note Vital Signs Vital Signs: Temp Pulse Resp BP Pulse Ox 36.6 C 115 H 18 116/59 L 100 03/06/21 19:11 03/07/21 01:08 03/07/21 00:08 03/07/21 01:08 03/06/21 23:05 Pain Intensity Abdomen: Pain Intensity: 0 Notes Mental Status: alert / awake / arousable and participated in evaluation Nausea / Vomiting: adequately controlled Pain: adequately controlled Airway Patency, RR, SpO2: stable & adequate BP & HR: stable & adequate Hydration State: stable & adequate Neuraxial Anesthesia: was administered and sensory block is resolving Anesthetic Complications: no major complications apparent and Pt Satisfied with anesthetic care Epidural: Removed without complications and With tip intact Notes: Epidural site clean, dry and intact. No signs of edema, erythema or bruising at insertion site. Pt instructed to request anesthesia if she has residual lower extremity numbness or if she develops lower extremity pain or weakness, back pain or headache.
[2021-03-07] MEDS: ACETAMINOPHEN 325 MG TAB PO PRN (01:35)
--- NOTE | 2021-03-07 05:58 | Obstetrical Progress Note ---
Date of Service <Catherine Serrano MD - Last Filed: 03/07/21 07:52> March 07, 2021 Assessment & Plan <Catherine Serrano MD - Last Filed: 03/07/21 07:52> (1) Encounter for care and examination after delivery: 25 yo now PPD1 from [facility] at 39wk6 -Continue routine care -Vitals reviewed- HDS, afebrile -Blood type A-, GBS-, Rubella immune -Rh-, baby is Rh+, pt will require Rhogam dose within 72 hours of delivery -Encourage ambulation, regular diet -Pain control with ibuprofen, acetaminophen PRN -Encourage -Hgb 11.1 on admission, asymptomatic -F/u in 6 weeks with OB <Halle Bedolla DO - Last Filed: 03/07/21 08:32> (1) Encounter for care and examination after delivery: Subjective <Catherine Serrano MD - Last Filed: 03/07/21 07:52> Ambulation: ambulating normally Voiding: no voiding problems Passing Gas:: Yes Diet Tolerance:: regular diet Lochia:: Moderate Feeding Type:: breast feeding Current Pain Level(1-10): 3 Pt and baby doing well, no acute events or complaints. Has not passed BM yet. Pain well controlled with medication. Review of Systems Denies fevers/chills. Denies dyspnea, cough. Denies chest pain. Denies breast pain or discharge. Denies dysuria. Denies headache. Denies back pain. Physical Exam <Catherine Serrano MD - Last Filed: 03/07/21 07:52> General: Alert, oriented, no acute distress Cardiac: Regular rate and rhythm, normal S1, S2. No murmurs appreciated. Respiratory: Clear to auscultation b/l with good air flow entry, symmetric chest rise and fall. No wheezes or crackles. No increased work of breathing or accessory muscle use Abdomen: Soft, nontender, nondistended. Fundus firm and palpable at 1 cm below umbilicus. No guarding or rebound. Skin: No rashes or lesions Extremities: Warm, dry, well-perfused with capillary refill <2s b/l. No lower extremity edema, erythema or swelling. Negative Samantha's sign b/l. Results & Data ([facility]) <Wasdaisha Alissa Serrano MD - Last Filed: 03/07/21 07:52> Vital Signs (Past 12 Hours) Vital Signs Temp Pulse Pulse Resp BP BP Pulse Ox 03/07/21 04:50 36.6 C 87 20 105/69 96 03/07/21 02:23 36.9 C 106 H 20 114/75 95 03/07/21 01:08 37.0 C 115 H 18 116/59 L 03/07/21 00:53 114 H 111/63 03/07/21 00:38 111 H 18 109/64 03/07/21 00:23 110 H 116/70 03/07/21 00:08 101 H 18 117/77 03/06/21 23:54 101 H 18 114/79 03/06/21 23:38 104 H 18 123/81 03/06/21 23:23 97 H 18 119/81 03/06/21 23:08 100 H 18 127/88 03/06/21 23:05 108 H 100 03/06/21 23:00 97 H 98 03/06/21 22:57 98 H 127/66 03/06/21 22:55 98 H 97 03/06/21 22:50 98 H 97 03/06/21 22:45 101 H 96 03/06/21 22:42 102 H 127/71 03/06/21 22:40 105 H 97 03/06/21 22:35 107 H 98 03/06/21 22:30 101 H 97 03/06/21 22:27 105 H 129/80 03/06/21 22:25 100 H 96 03/06/21 22:23 18 03/06/21 22:20 88 98 03/06/21 22:15 91 H 99 03/06/21 22:10 93 H 99 03/06/21 22:05 88 97 03/06/21 22:00 91 H 18 97 03/06/21 21:57 90 124/79 03/06/21 21:55 88 97 03/06/21 21:50 86 97 03/06/21 21:45 85 97 03/06/21 21:43 86 124/76 03/06/21 21:40 85 98 03/06/21 21:35 87 96 03/06/21 21:30 88 18 97 03/06/21 21:28 85 125/83 03/06/21 21:25 80 97 03/06/21 21:20 84 98 03/06/21 21:15 84 97 03/06/21 21:11 85 122/74 03/06/21 21:10 86 97 03/06/21 21:05 87 96 03/06/21 21:00 89 18 97 03/06/21 20:57 82 122/73 03/06/21 20:55 87 97 03/06/21 20:50 87 98 03/06/21 20:45 89 97 03/06/21 20:42 90 122/82 03/06/21 20:40 90 98 03/06/21 20:35 92 H 97 03/06/21 20:30 90 18 97 03/06/21 20:28 91 H 122/83 03/06/21 20:25 86 99 03/06/21 20:20 90 99 03/06/21 20:15 94 H 98 03/06/21 20:13 92 H 115/77 03/06/21 20:10 89 98 03/06/21 20:05 91 H 99 03/06/21 20:00 96 H 18 97 03/06/21 19:57 86 120/75 03/06/21 19:55 91 H 98 03/06/21 19:50 90 98 03/06/21 19:45 89 98 03/06/21 19:43 91 H 124/80 03/06/21 19:40 89 98 03/06/21 19:35 92 H 98 03/06/21 19:30 91 H 18 98 03/06/21 19:28 88 111/67 03/06/21 19:25 90 98 03/06/21 19:20 89 97 03/06/21 19:17 92 H 93 03/06/21 19:15 95 H 98 03/06/21 19:11 36.6 C 88 125/82 03/06/21 19:10 91 H 100 03/06/21 19:05 93 H 98 03/06/21 19:00 91 H 99 03/06/21 18:57 85 119/76 03/06/21 18:55 97 H 98 03/06/21 18:50 92 H 98 03/06/21 18:45 101 H 99 03/06/21 18:41 94 H 115/71 03/06/21 18:40 92 H 97 03/06/21 18:35 95 H 98 03/06/21 18:30 95 H 98 03/06/21 18:27 95 H 112/76 03/06/21 18:25 98 H 98 03/06/21 18:20 92 H 98 03/06/21 18:15 96 H 98 03/06/21 18:11 95 H 123/73 03/06/21 18:10 96 H 97 03/06/21 18:05 101 H 97 03/06/21 18:00 36.9 C 97 H 18 98 03/06/21 17:57 100 H 119/70 03/06/21 17:55 103 H 95 <Halle Bedolla DO - Last Filed: 03/07/21 08:32> Co-Signing Physician Notes Resident Physician Supervision Note: I was present with Dr. Ingram during the history and exam. I discussed the case with the resident and agree with the findings and plan as documented in the note. Any exceptions or clarifications are listed here: PPD#1 doing well. Documented By: Halle Bedolla DO Resident Activity Tracking <Catherine Serrano MD - Last Filed: 03/07/21 07:52> Resident Involvement: Resident Care Provided Care Provided: OB Delivery
[2021-03-07 06:33] LABS: Hematocrit (blood only) 33.6 % (37-47); Hemoglobin 11.1 g/dL (12.0-16.0)
[2021-03-07] MEDS: DOCUSATE SODIUM 100 MG CAP PO SCH ×2 (07:57→19:42)
[2021-03-07] MEDS: IBUPROFEN 600 MG TAB PO PRN ×3 (07:57→19:42)
[2021-03-07] MEDS: PRENATAL VITAMIN 1 TAB PO SCH (07:57)
[2021-03-07] MEDS ORDERED: bisacodyL 5 MG TABEC PO SCH (20:00)
[2021-03-07] MEDS ORDERED: CALCIUM CARBONATE 500 MG CHEWABLE TAB PO PRN (20:16)
[2021-03-08] MEDS: IBUPROFEN 600 MG TAB PO PRN (00:36)
[2021-03-08] MEDS: DOCUSATE SODIUM 100 MG CAP PO SCH (08:54)
[2021-03-08] MEDS: PRENATAL VITAMIN 1 TAB PO SCH (08:54)
[2021-03-08] MEDS: ACETAMINOPHEN 325 MG TAB PO PRN (08:55)
--- NOTE | 2021-03-08 09:02 | Obstetrical Progress Note ---
Date of Service March 08, 2021 Assessment & Plan (1) Encounter for care and examination after delivery: 25yo day 2 s/p . Doing well. Stable for discharge Subjective Ambulation: ambulating normally Voiding: no voiding problems Passing Gas:: Yes Diet Tolerance:: regular diet Lochia:: Moderate Feeding Type:: breast feeding Physical Exam Constitutional WD/WN, vitals as above Respiratory normal respiratory effort; no respiratory distress and no labored breathing Gastrointestinal (Abdomen) Inspection/Auscultation: abdomen normal to inspection; abdomen not distended Percussion/Palpation: abdomen soft; abdomen nontender, no guarding and abdomen not rigid Genitourinary OB Exam Abdomen: + fundal height Fundus: + firm and + relation to umbilicus (Below); not tender or not boggy Results & Data ([facility]) Vital Signs (Past 12 Hours) Vital Signs Temp Pulse Resp BP Pulse Ox 03/08/21 01:13 36.5 C 87 20 117/72 96
== END 2021-03-08 11:15 | disposition home or self-care (01) | DRG 807 ==
LOC: 4S1 07:26 → EDSTATUS 08:50 → 4S1 08:57 → 4N 03-07 02:36
DX: Z37.0 Single live birth; Z79.899 Other long term (current) drug therapy; Z67.91 Unspecified blood type, Rh negative; Z3A.39 39 weeks gestation of pregnancy; Z77.22 Contact with and (suspected) exposure to environmental tobacco smoke (acute) (chronic); Z88.8 Allergy status to other drugs, medicaments and biological substances; O32.0XX0 Maternal care for unstable lie, not applicable or unspecified; O70.1 Second degree perineal laceration during delivery